=== PATIENT | female | born 1965 | race Caucasian/White ===

== ENCOUNTER 2017-11-28 15:20 | Outpatient (CLI) | payer BC | END 2017-11-28 15:21 | disposition home or self-care (01) | LOC: BICMAMMO 15:20 | PROVIDERS: ATTEND Family Medicine | DX: Z12.31 Encounter for screening mammogram for malignant neoplasm of breast (principal); R92.1 Mammographic calcification found on diagnostic imaging of breast | CPT/HCPCS: 77063; 77067 ==

== ENCOUNTER 2018-12-11 13:54 | Outpatient (CLI) | payer BC ==
--- NOTE | 2018-12-11 15:08 | BD ---
DEXA BONE MINERAL DENSITY STUDY: HISTORY: Osteoporosis screening. COMPARISON: None. FINDINGS: Right forearm: BMD (g/cm2) 06/11 0.617 T-Score: -1.3 -0.4 Mid 0.462 T-Score: -2.6 -1.8 Ultra Distal 0.484 T-Score: 0.7 1.3 Total 0.492 T-Score: -1.6 -0.8 Left forearm: 06/11 0.637 T-Score: -0.9 -0.1 Mid 0.489 T-Score: -2.2 -1.3 Ultra Distal 0.508 T-Score: 1.1 1.7 Impression: Osteopenia with elevated fracture risk. POS: TPC
--- NOTE | 2018-12-11 16:11 | MMO ---
Bilateral MAMMO Bilat Screen [facility]. CLINICAL HISTORY: Patient is 53 years old and is seen for screening. The patient has no family history of breast cancer. The patient has no personal history of cancer. VIEWS: The views performed were: bilateral craniocaudal; bilateral craniocaudal with tomosynthesis; bilateral mediolateral oblique; and bilateral mediolateral oblique with tomosynthesis. FILMS COMPARED: The present examination has been compared to prior imaging studies performed at [facility] on 11/06/2016 and 11/28/2017. MAMMOGRAM FINDINGS: The breasts are almost entirely fat. There are benign appearing calcifications seen in both breasts. There are no suspicious masses, suspicious calcifications, or new areas of architectural distortion. IMPRESSION: THERE IS NO MAMMOGRAPHIC EVIDENCE OF MALIGNANCY. A ROUTINE FOLLOW-UP MAMMOGRAM IN 1 YEAR IS RECOMMENDED. THE RESULTS OF THIS EXAM WERE SENT TO THE PATIENT. ACR BI-RADS Category 2 - Benign finding MAMMOGRAPHY NOTE: 1. A negative mammogram report should not delay a biopsy if a dominant of clinically suspicious mass is present. 2. Approximately 10% to 15% of breast cancers are not detected by mammography. 3. Adenosis and dense breasts may obscure an underlying neoplasm.
== END 2018-12-11 13:55 | disposition home or self-care (01) ==
LOC: BICMAMMO 13:54
PROVIDERS: ATTEND Family Medicine
DX: Z12.31 Encounter for screening mammogram for malignant neoplasm of breast (principal); Z13.820 Encounter for screening for osteoporosis; M85.831 Other specified disorders of bone density and structure, right forearm; M85.832 Other specified disorders of bone density and structure, left forearm
CPT/HCPCS: 77063; 77067; 77080